=== PATIENT | male | born 1955 | race Caucasian/White ===

== ENCOUNTER → 2018-06-10 13:22 | Outpatient (CLI) | payer OTHER, SELFPAY ==
--- NOTE | 2018-06-10 | DI.ECHO.S_ITS ---
[place] +---------+ [facility] +---------+ : : [address] : : : : [address] : : : : [phone] : : : : Phone: [phone] +---------+ Echocardiogram Report + + :Name: MARILEE BOND Study Date: 06/10/2018 Height: 68 in : :[facility] Exam Location: [facility] Weight: 220 lb : : Gender: Male BSA: 2.1 m2 : :: 1955 Age: 63 yrs BP: 128/78 mmHg: :Reason For Study: Aortic Stenosis (S/P AVR) : :Ordering Physician: Florence Agosto : :Ronal Performed By: Tammy Mauricio : :Referring: FLORENCE MICHELE : + + Interpretation Summary Left ventricular systolic function is normal without focal wall motion abnormalities with the ejection fraction visually estimated to be 60-65% and grossly appears unchanged compared to the previous study. There is mild concentric left ventricular hypertrophy. The right ventricle is not well visualized but grossly appears normal in size with probable normal systolic function and grossly appears unchanged compared to the previous study. Pulmonary artery pressures cannot be estimated because of the lack of a measurable TR jet velocity but the IVC suggests a CVP of around 3 mmHg. The left atrium is mildly dilated. The anterior mitral valve leaflet is moderately calcified with mildly reduced leaflet mobility producing probable mild mitral stenosis with a mitral valve mean gradient is 4 mmHg which is unchanged compared to the previous study. There is mild mitral regurgitation that grossly appears unchanged compared to the previous study. There is a new bioprosthetic aortic valve since the previous exam. This appears to be stable without any rocking motion although there are multiple small perivalvular jets, specifically at 12 o'clock and 8 o'clock positions in the short axis. There appears to be some systolic flow through the 12 o'clock perivalvular space. In addition, there appears to be mild intravalvular regurgitation. In total, there appears to be mild to moderate aortic regurgitation There is no no evidence for any hemodynamically significant valvular aortic stenosis. The ascending aorta is mildly enlarged. Procedure: A two-dimensional transthoracic echocardiogram with color flow and Doppler was performed. The study quality was technically adequate. Comparison is made with the echocardiogram of 01/28/2018. Although the previous study is a SHAYLA, making direct comparison difficult. The patient was in normal sinus rhythm during the exam. Left Ventricle: The left ventricle is normal in size. There is mild concentric left ventricular hypertrophy. Left ventricular systolic function is normal without focal wall motion abnormalities. The ejection fraction is estimated to be 60-65%. This is grossly compared to the previous study. Diastolic function could not be accurately assessed due to confounding valvular disease. Right Ventricle: The right ventricle is not well visualized. The right ventricle grossly appears normal in size with probable normal systolic function. This is grossly compared to the previous study. Atria: The left atrium is mildly dilated. Right atrial size is normal. The interatrial septum is intact with no evidence for an atrial septal defect. Mitral Valve: The anterior mitral valve leaflet is moderately calcified with mildly reduced leaflet mobility. There is mild mitral stenosis. The mitral valve mean gradient is 4 mmHg. This is unchanged compared to the previous study. There is mild mitral regurgitation. This is grossly unchanged compared to the previous study. Aortic Valve: There is a new bioprosthetic aortic valve since the previous exam. This appears to be stable without any rocking motion although there are multiple small perivalvular jets, specifically at twelve o'clock and 8 o'clock position in the short axis. There appears to be some systolic flow through the twelve o'clock perivalvular space. In addition, there appears to be mild intra-valvular regurgitation. In total, there appears to be mild to moderate aortic regurgitation. There is no hemodynamically significant valvular aortic stenosis. Tricuspid Valve: The tricuspid valve is normal in structure and function. There is a trace or physiologic amount of tricuspid regurgitation. Pulmonary artery pressures cannot be estimated because of the lack of a measurable TR jet velocity but the IVC suggests a CVP of around 3 mmHg. Pulmonic Valve: The pulmonic valve is not well seen, but is grossly normal. There is a trace or physiologic amount of pulmonic regurgitation. Great Vessels: The ascending aorta is mildly enlarged. The IVC is of normal diameter and collapses greater than 50% with a sniff. This suggests a low right atrial pressure of 3 mm Hg. Pericardium/ Pleura There is no pericardial effusion. There is no pleural effusion. MMode/2D Measurements & Calculations LVIDd: 4.6 cm LVOT diam: 2.3 cm LVIDs: 3.1 cm asc Aorta Diam: 3.8 cm FS: 31.6 % Ao Arch Diam (Prox Trans): 2.7 cm IVSd: 1.3 cm LVPWd: 1.2 cm LV rhodes. diameter/BSA (cm/m^2): 2.1 LV sys. diameter/BSA (cm/m^2): 1.5 LA A2 area: 21.7 cm2 RA long axis: 5.1 cm LA A4 area: 23.6 cm2 RA area: 17.3 cm2 LA length (vol): 5.2 cm RA vol: 50.2 ml LA vol: 83.7 ml RA : 23.6 ml/m2 LA vol index: 39.3 ml/m2 TAPSE: 1.0 cm Doppler Measurements & Calculations Ao V2 max: 140.8 cm/sec LVOT Max Sedrick: 99.5 cm/sec Ao V2 mean: 93.0 cm/sec LV V1 max P.0 mmHg Ao max P.9 mmHg LV V1 VTI: 19.6 cm Ao mean P.9 mmHg RENAN(I,D): 3.2 cm2 Ao V2 VTI: 25.3 cm RENAN(V,D): 2.9 cm2 sev ratio: 0.78 RENAN indexed to BSA (cm^2/m^2): 1.5 MVA(VTI): 1.3 cm2 MV V2 mean: 89.1 cm/sec MV mean P.6 mmHg MV V2 VTI: 61.3 cm Reading Physician:GEOVANY
[2018-06-10 15:01] LABS: Add Manual Diff / Slide Review NO; Basophils Percent Auto 0.9 % (0-2); Eosinophils Percent Auto 1.7 % (2-4); Hematocrit 43.4 % (41-53); Hemoglobin 14.9 g/dL (13.5-17.5); Lymphocytes Percent Auto 20.5 % (25-40); Mean Corpuscular HGB Conc 34.5 % (30-36); Mean Corpuscular Volume 89.9 fL (80-100); Monocytes Percent Auto 8.9 % (3-14); Neutrophils Absolute Auto 5600 /uL (3000-5900); Platelet Count 146 X10^3/uL (150-400); Red Blood Cell Count 4.82 X10^6/uL (4.5-5.9); White Blood Cell Count 8.2 X10^3/uL (4.5-11.0)
[2018-06-10 16:42] LABS: Alanine Aminotransferase 24 IU/L (21-72); Albumin 4.5 g/dL (3.5-5.0); Albumin Globulin Ratio 1.5 (1.0-2.8); Alkaline Phosphatase 71 U/L (38-126); Aspartate Aminotransferase 41 IU/L (17-59); Bilirubin Total 1.4 mg/dL (0.2-1.3); Blood Urea Nitrogen 16 mg/dL (9-20); Calcium 9.6 mg/dL (8.4-10.2); Carbon Dioxide 32 mmol/L (22-32); Chloride 103 mmol/L (98-107); Estimated Glomerular Filt Rate > 60.0 mL/min (>60); Globulin 3.1 g/dL (1.7-4.1); Glucose 85 mg/dL (80-110); HEMOLYSIS 19 (0-50); Potassium 4.5 mmol/L (3.4-5.1); Sodium 143 mmol/L (137-145); Total Protein 7.6 g/dL (6.3-8.2)
== END ==
PROVIDERS: PCP Physician Assistant; Visit Provider Internal Medicine Cardiovascular Disease
DX: I08.0 Rheumatic disorders of both mitral and aortic valves (principal); I48.0 Paroxysmal atrial fibrillation; Z95.3 Presence of xenogenic heart valve
CPT/HCPCS: 36415; 80053; 85025; 93306

== ENCOUNTER → 2019-04-12 09:06 | Outpatient (CLI) | payer OTHER, SELFPAY ==
--- NOTE | 2019-04-12 | DI.ECHO.S_ITS ---
[place] +---------+ [facility] +---------+ : : [address] : [address] : : : : [phone] : : : : Phone: [phone] +---------+ Echocardiogram Report + + :Name: MARILEE BOND Study Date: 04/12/2019 Height: 68 in : :[facility] Weight: 217 lb : : Gender: Male BSA: 2.1 m2 : :: 1955 Age: 64 yrs BP: 132/72 mmHg: :Reason For Study: Mitral Valve- Stenosis : : Performed By: Ritika Estrella : :Referring: FLORENCE VILLEDA : + + Interpretation Summary 1) Normal left ventricular size, thickness, wall motion, and systolic function E(F 60-65%). 2) Normal right ventricular size and function grossly 3) Severe left atrial enlargement. 4) There is mild to moderate mitral stenosis (valve are 1.5cm2 by PHT method, mean gradient 6.2mmmHg). 5) Bioprosthetic aortic valve present, which is well seated and with expected gradient (mean gradient of 3.1cmmHg). Mild aortic regurigtation present. 5) The ascending aorta is mildly enlarged at 3.9cm. 6) Compared to the Echo done 06/10/2018, no significant change. Procedure: A two-dimensional transthoracic echocardiogram with color flow and Doppler was performed. The study quality was technically adequate. Comparison is made with the echocardiogram of 06-10-18. The patient was in atrial fibrillation with heart rates between 57-70 bpm during the exam. Left Ventricle: The left ventricle is normal in size, wall thickness, and systolic function without any focal wall motion abnormalities. The ejection fraction is estimated to be 60-65%. Diastolic function could not be accurately assessed due to atrial fibrillation. Right Ventricle: The right ventricle grossly appears normal in size with probable normal systolic function. Atria: The left atrium is severely dilated. Right atrial size is normal. The interatrial septum is intact with no evidence for an atrial septal defect. Mitral Valve: The mitral valve leaflets appear moderately thickened, but open well. There is mild mitral annular calcification. The mitral valve appears rheumatic. The mitral valve mean gradient is 6.2 mmHg. There is mild to moderate mitral stenosis. 1.5cm2 valve area by PHT method. There is trace mitral regurgitation. Aortic Valve: There is a bioprosthetic aortic valve. The prosthetic aortic valve is well-seated. There is mild aortic regurgitation. Tricuspid Valve: The tricuspid valve leaflets are thin and pliable. There is a trace or physiologic amount of tricuspid regurgitation. The right ventricular systolic pressure is estimated to be at least 16 mmHg based on an estimated right atrial pressure of 3 mm Hg. Pulmonic Valve: The pulmonic valve is not well seen, but is grossly normal. There is trace pulmonic regurgitation. Great Vessels: The aortic root is normal size. The ascending aorta is mildly enlarged. The aortic arch is normal in size. The IVC is of normal diameter and collapses greater than 50% with a sniff. This suggests a low right atrial pressure of 3 mm Hg. Pericardium/ Pleura There is no pericardial effusion. There is no pleural effusion. MMode/2D Measurements & Calculations LVIDd: 4.9 cm Ao root diam: 3.1 cm LVIDs: 2.6 cm Aortic Jxn: 2.8 cm FS: 47.0 % asc Aorta Diam: 3.9 cm EPSS: 1.3 cm Ao Arch Diam (Prox Trans): 2.9 cm IVSd: 1.0 cm LVPWd: 0.75 cm LV rhodes. diameter/BSA (cm/m^2): 2.3 LV sys. diameter/BSA (cm/m^2): 1.2 LA dimension: 4.3 cm RA long axis: 5.2 cm LA A2 area: 31.4 cm2 RA area: 16.4 cm2 LA A4 area: 25.0 cm2 RA vol: 44.0 ml LA length (vol): 5.9 cm RA : 20.8 ml/m2 LA vol: 113.9 ml IVC diam: 1.1 cm LA vol index: 53.9 ml/m2 RVDd major: 6.3 cm RVD1 (basal): 3.5 cm RVD2 (mid): 3.1 cm Doppler Measurements & Calculations Ao V2 max: 127.1 cm/sec MV E max sedrick: 167.3 cm/sec Ao V2 mean: 79.3 cm/sec MV A max sedrick: 182.8 cm/sec Ao max P.5 mmHg MV E/A: 0.92 Ao mean P.1 mmHg Med Peak E' Sedrick: 4.5 cm/sec Ao V2 VTI: 25.9 cm E/E' med: 37.0 Lat Peak E' Sedrick: 7.5 cm/sec E/E' lat: 22.4 E/e' average: 29.7 MV dec time: 0.49 sec TR max sedrick: 181.0 cm/sec MV V2 mean: 117.2 cm/sec TR max P.1 mmHg MV mean P.2 mmHg PA V2 max: 82.1 cm/sec MV V2 VTI: 65.6 cm PA V2 mean: 55.6 cm/sec PA mean P.4 mmHg PA Accel Time: 0.16 sec Reading Physician:12:14 PM
== END ==
PROVIDERS: Family Provider Family Medicine; PCP Family Medicine; Visit Provider Internal Medicine Cardiovascular Disease
DX: I08.0 Rheumatic disorders of both mitral and aortic valves (principal); I77.89 Other specified disorders of arteries and arterioles
CPT/HCPCS: 93306

== ENCOUNTER → 2019-06-04 13:54 | Outpatient (CLI) | payer OTHER, SELFPAY ==
[2019-06-04 14:45] LABS: Add Manual Diff / Slide Review NO; Basophils Absolute Auto 100 /uL (0-100); Basophils Percent Auto 0.6 % (0-2); Eosinophils Absolute Auto 300 /uL (0-450); Eosinophils Percent Auto 3.5 % (2-4); Hematocrit 45.2 % (41-53); Hemoglobin 15.7 g/dL (13.5-17.5); Lymphocytes Absolute Auto 1700 /uL (1100-4500); Lymphocytes Percent Auto 19.5 % (25-40); Mean Corpuscular HGB Conc 34.8 % (30-36); Monocytes Absolute Auto 800 /uL (0-900); Monocytes Percent Auto 9.1 % (3-14); Neutrophils Absolute Auto 5700 /uL (1500-7000); Neutrophils Percent Auto 67.3 % (50-75); Platelet Count 152 X10^3/uL (150-400); Red Blood Cell Count 4.91 X10^6/uL (4.5-5.9); White Blood Cell Count 8.5 X10^3/uL (4.5-11.0)
[2019-06-04 15:54] LABS: BUN Creatinine Ratio 14.4 (6-22); Blood Urea Nitrogen 13 mg/dL (9-20); Calcium 9.8 mg/dL (8.4-10.2); Carbon Dioxide 27 mmol/L (22-32); Chloride 105 mmol/L (98-107); Cholesterol 243 mg/dL (140-199); Estimated Glomerular Filt Rate > 60.0 mL/min (>60); Glucose 92 mg/dL (80-110); HDL Cholesterol 32 mg/dL (40-60); HEMOLYSIS < 15 (0-50); LDL Cholesterol Calculated 159 mg/dL (<100); Potassium 4.2 mmol/L (3.4-5.1); Sodium 140 mmol/L (137-145); Triglycerides 261 mg/dL (35-150)
== END ==
PROVIDERS: Family Provider Family Medicine; PCP Family Medicine; Visit Provider Internal Medicine Cardiovascular Disease
DX: Z86.73 Personal history of transient ischemic attack (TIA), and cerebral infarction without residual deficits (principal); Z79.01 Long term (current) use of anticoagulants; I05.0 Rheumatic mitral stenosis
CPT/HCPCS: 36415; 80048; 80061; 85025

== ENCOUNTER → 2020-08-03 14:35 | Outpatient (CLI) | payer OTHER, SELFPAY ==
--- NOTE | 2020-08-03 14:36 | DI.ECHO.S_ITS ---
[facility]---------+ [facility] +---------+ : : [address] : : : : [phone] : : : : Phone: [phone] : : [phone] +---------+ Echocardiogram Report + + :Name: MARILEE BOND Study Date: 08/03/2020 Height: 68 in : :[facility] ReadingLocation: Weight: 230 lb : : Gender: Male BSA: 2.2 m2 : :: 1955 Age: 65 yrs BP: 158/89 mmHg: :Reason For Study: MITRAL STENOSIS : :Ordering Physician: RYNE, : :FLORENCE Performed By: Kim Smith : :Referring: FLORENCE VILLEDA : + + Interpretation Summary 1) Normal left ventricular size, wall motion, and systolic function (EF 60- 65%). 2) Grossly, normal right ventricular size with low normal function. 3) Moderate left atrial enlargement. 4) There is mild to moderate mitral stenosis (valve are 1.8cm2 by PHT method, mean gradient 6-7mmmHg). 5) Bioprosthetic aortic valve present, which is well seated and with expected gradient (mean gradient of 4.4cmHg). Mild aortic regurigtation present. 5) The ascending aorta is mildly enlarged at 3.9cm. 6) Compared to the Echo done 04/12/2019, no significdant change. Procedure: A two-dimensional transthoracic echocardiogram with color flow and Doppler was performed. The study quality was technically adequate. Comparison is made with the echocardiogram of 04/12/2019. Left Ventricle: The left ventricle is normal in size. There is mild concentric left ventricular hypertrophy. The ejection fraction is estimated to be 60-65%. Diastolic function could not be accurately assessed due to contradictory data. Right Ventricle: The right ventricle is grossly normal size. Right ventricular systolic function is at the lower limits of normal. Atria: The left atrium is moderately dilated. Right atrial size is normal. There is no Doppler evidence for an interatrial shunt. Mitral Valve: The mitral valve appears rheumatic. There is mild mitral annular calcification. The mitral valve leaflets are mildly calcified. The mitral valve mean gradient is 7.6 mmHg. There is mild to moderate mitral stenosis. There is trace mitral regurgitation. Aortic Valve: There is a bioprosthetic aortic valve. The peak aortic velocity is 1.5 m/sec. The aortic valve mean gradient is 4.4 mmHg. There is mild aortic regurgitation. Tricuspid Valve: The tricuspid valve is not well visualized, but is grossly normal. There is trace tricuspid regurgitation. Pulmonary artery pressures cannot be estimated because of the lack of a measurable TR jet velocity. Pulmonic Valve: The pulmonic valve leaflets are thin and pliable; valve motion is normal. There is no pulmonic valvular regurgitation. Great Vessels: The aortic root is not well visualized but is probably normal size. The ascending aorta is mildly enlarged. The inferior vena cava was not well visualized. Pericardium/ Pleura There is no pericardial effusion. There is no pleural effusion. MMode/2D Measurements & Calculations LVIDd: 4.8 cm LVOT diam: 2.1 cm LVIDs: 3.3 cm asc Aorta Diam: 3.9 cm FS: 31.2 % Ao Arch Diam (Prox Trans): 2.7 cm EPSS: 1.2 cm IVSd: 1.2 cm LVPWd: 0.94 cm LV rhodes. diameter/BSA (cm/m^2): 2.2 LV sys. diameter/BSA (cm/m^2): 1.5 LA A2 area: 29.5 cm2 RA long axis: 5.3 cm LA A4 area: 22.3 cm2 RA area: 20.3 cm2 LA length (vol): 6.0 cm RA vol: 65.6 ml LA vol: 93.0 ml RA : 30.3 ml/m2 LA vol index: 42.9 ml/m2 RVD1 (basal): 4.0 cm TAPSE: 1.6 cm Doppler Measurements & Calculations Ao V2 max: 150.2 cm/sec LVOT Max Sedrick: 97.6 cm/sec Ao V2 mean: 97.4 cm/sec LV V1 max P.8 mmHg Ao max P.0 mmHg LV V1 VTI: 16.9 cm Ao mean P.4 mmHg RENAN(I,D): 2.3 cm2 Ao V2 VTI: 25.9 cm RENAN(V,D): 2.3 cm2 sev ratio: 0.65 RENAN indexed to BSA (cm^2/m^2): 1.1 MV E max sedrick: 159.2 cm/sec PA V2 max: 82.8 cm/sec MV A max sedrick: 177.8 cm/sec PA V2 mean: 57.7 cm/sec MV E/A: 0.90 PA mean P.5 mmHg Med Peak E' Sedrick: 4.1 cm/sec PA pr(Accel): 43.0 mmHg E/E' med: 38.8 Lat Peak E' Sedrick: 10.6 cm/sec E/E' lat: 15.1 E/e' average: 26.9 MV dec time: 0.43 sec MV P1/2t: 114.8 msec MVA(VTI): 0.97 cm2 MV V2 mean: 132.9 cm/sec MV P1/2t max sedrick: 146.7 cm/sec MV mean P.6 mmHg MVA(P1/2t): 1.9 cm2 MV V2 VTI: 61.4 cm SV(LVOT): 59.6 ml MV P1/2t-pr_phl: 141.3 msec Reading Physician:02:38 PM
== END ==
PROVIDERS: Family Provider Family Medicine; PCP Family Medicine; Referring Provider Internal Medicine Cardiovascular Disease; Visit Provider Internal Medicine Cardiovascular Disease
DX: I08.0 Rheumatic disorders of both mitral and aortic valves (principal); I77.89 Other specified disorders of arteries and arterioles; Z95.2 Presence of prosthetic heart valve
CPT/HCPCS: 93306

== ENCOUNTER → 2022-10-14 07:48 | Outpatient (CLI) | payer OTHER, SELFPAY ==
--- NOTE | 2022-10-14 | DI.ECHO.S_ITS ---
[facility]---------+ [facility] +---------+ : : [address] : [address] : : : : [id number] : : : : Phone: [phone] : [phone] +---------+ Echocardiogram Report + + :Name: MARILEE BOND Study Date: 10/14/2022 Height: 68 in : :[facility] ReadingLocation: Weight: 215 lb : : Gender: Male BSA: 2.1 m2 : :: 1955 Age: 67 yrs BP: 140/85 mmHg: :Reason For Study: AORTIC VALVE REPLACEMENT HR: 60 : :Ordering Physician: RYNE, : :FLORENCE Performed By: BETO ESCOTO : :Referring: FLORENCE VILLEDA : + + Interpretation Summary 1) Normal left ventricular size, wall motion, and systolic function (EF 60- 65%). 2) Grossly, normal right ventricular size with low normal function. 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 4) Bioprosthetic aortic valve present, which is well seated and with expected gradient (mean gradient of 5mmHg). Trace aortic regurigtation present. 5) The ascending aorta is mildly enlarged at 3.9cm. 6) Compared to the Echo done 08/03/2020, no significant change. Procedure: A two-dimensional transthoracic echocardiogram with color flow and Doppler was performed. The study quality was technically adequate. Comparison is made with the echocardiogram of 08/03/2020. The patient was in normal sinus rhythm during the exam. Left Ventricle: The left ventricle is normal in size. There is mild concentric left ventricular hypertrophy. Left ventricular systolic function is normal. The ejection fraction is estimated to be 60-65%. Diastolic function could not be accurately assessed due to confounding valvular disease. Right Ventricle: The right ventricle is grossly normal size. Right ventricular systolic function is at the lower limits of normal. Atria: The left atrium is mildly dilated. Right atrial size is normal. There is no Doppler evidence for an interatrial shunt. Mitral Valve: The mitral valve appears rheumatic. There is mild mitral annular calcification. The mitral valve leaflets are mildly calcified. There is mild to moderate mitral stenosis. The mitral valve mean gradient is 8 mmHg. There is trace mitral regurgitation. Aortic Valve: There is a bioprosthetic aortic valve. The peak aortic velocity is 1.4 m/sec. The aortic valve mean gradient is 5 mmHg. There is trace aortic regurgitation. Tricuspid Valve: The tricuspid valve is not well visualized, but is grossly normal. No tricuspid regurgitation. Pulmonary artery pressures cannot be estimated because of the lack of a measurable TR jet velocity. Pulmonic Valve: The pulmonic valve leaflets are thin and pliable; valve motion is normal. There is no pulmonic valvular regurgitation. Great Vessels: The aortic root is normal size. The ascending aorta is mildly enlarged. The IVC is of normal diameter and collapses greater than 50% with a sniff. This suggests a low right atrial pressure of 3 mm Hg. Pericardium/ Pleura There is no pericardial effusion. There is no pleural effusion. MMode/2D Measurements & Calculations LVIDd: 4.7 cm LVOT diam: 2.0 cm LVIDs: 3.2 cm Ao root diam: 3.4 cm FS: 31.9 % asc Aorta Diam: 3.9 cm IVSd: 1.1 cm Ao Arch Diam (Prox Trans): 2.5 cm LVPWd: 1.1 cm LV rhodes. diameter/BSA (cm/m^2): 2.2 LV sys. diameter/BSA (cm/m^2): 1.5 LA A2 area: 26.0 cm2 RA long axis: 4.9 cm LA A4 area: 16.5 cm2 LA length (vol): 5.8 cm LA vol: 62.7 ml LA vol index: 29.7 ml/m2 LVLs ap4: 7.4 cm LVLd ap2: 8.1 cm LVLs ap2: 7.1 cm TAPSE_phl: 1.6 cm Doppler Measurements & Calculations Ao V2 max: 135.0 cm/sec LVOT Max Sedrick: 104.0 cm/sec Ao V2 mean: 104.0 cm/sec LV V1 max P.3 mmHg Ao max P.3 mmHg LV V1 VTI: 24.0 cm Ao mean P.0 mmHg RENAN(I,D): 2.6 cm2 Ao V2 VTI: 28.8 cm RENAN(V,D): 2.4 cm2 sev ratio: 0.83 RENAN indexed to BSA (cm^2/m^2): 1.2 MV E max sedrick: 155.0 cm/sec PA V2 max: 94.0 cm/sec MV A max sedrick: 152.0 cm/sec PA V2 mean: 70.1 cm/sec MV E/A: 1.0 PA mean P.0 mmHg Med Peak E' Sedrick: 3.5 cm/sec PA pr(Accel): 42.5 mmHg E/E' med: 44.5 Lat Peak E' Sedrick: 8.9 cm/sec E/E' lat: 17.4 E/e' average: 31.0 MV dec time: 0.55 sec MV P1/2t: 137.0 msec MVA(VTI): 0.99 cm2 MV V2 mean: 132.0 cm/sec MV P1/2t max sedrick: 182.0 cm/sec MV mean P.0 mmHg MVA(P1/2t): 1.6 cm2 MV V2 VTI: 75.8 cm SV(LVOT): 75.4 ml AV VR_phl: 0.81 RENAN(VTI)/BSA_phl: 1.3 MV P1/2t-pr_phl: 163.0 msec Reading Physician:03:11 PM
[2022-10-14 09:11] LABS: Add Manual Diff / Slide Review NO; Basophils Absolute Auto 100 /uL (0-100); Basophils Percent Auto 0.9 % (0-2); Eosinophils Absolute Auto 300 /uL (0-450); Eosinophils Percent Auto 5.2 % (2-4); Hematocrit 44.2 % (41-53); Hemoglobin 14.9 g/dL (13.5-17.5); Lymphocytes Absolute Auto 1700 /uL (1100-4500); Lymphocytes Percent Auto 27.1 % (25-40); Mean Corpuscular HGB Conc 33.8 % (30-36); Mean Corpuscular Hemoglobin 30.8 PG (26-34); Mean Corpuscular Volume 91.1 fL (80-100); Monocytes Absolute Auto 700 /uL (0-900); Monocytes Percent Auto 11.3 % (3-14); Neutrophils Absolute Auto 3500 /uL (1500-7000); Neutrophils Percent Auto 55.5 % (50-75); Platelet Count 138 X10^3/uL (150-400); Red Blood Cell Count 4.85 X10^6/uL (4.5-5.9); Red Cell Distribution Width 13.4 % (11.6-14.8); White Blood Cell Count 6.3 X10^3/uL (4.5-11.0)
[2022-10-14 09:53] LABS: BUN Creatinine Ratio 18.9 (6-22); Blood Urea Nitrogen 14 mg/dL (9-20); Calcium 9.1 mg/dL (8.4-10.2); Carbon Dioxide 30 mmol/L (22-32); Chloride 101 mmol/L (98-107); Cholesterol 170 mg/dL (140-199); Estimated Glomerular Filt Rate > 60 mL/min (>60); Glucose 95 mg/dL (80-110); HDL Cholesterol 42 mg/dL (40-60); HEMOLYSIS < 15 (0-50); LDL Cholesterol Calculated 98 mg/dL (<100); Potassium 4.4 mmol/L (3.4-5.1); Sodium 138 mmol/L (137-145); Triglycerides 148 mg/dL (35-150)
== END ==
PROVIDERS: Family Provider Family Medicine; PCP Family Medicine; Referring Provider Internal Medicine Cardiovascular Disease; Visit Provider Internal Medicine Cardiovascular Disease
DX: I05.0 Rheumatic mitral stenosis (principal); I77.89 Other specified disorders of arteries and arterioles; I48.19 Other persistent atrial fibrillation; E78.5 Hyperlipidemia, unspecified; Z95.3 Presence of xenogenic heart valve; Z79.01 Long term (current) use of anticoagulants
CPT/HCPCS: 36415; 80048; 80061; 85025; 93306

== ENCOUNTER → 2023-12-10 12:36 | Outpatient (CLI) | payer OTHER, SELFPAY ==
--- NOTE | 2023-12-10 12:37 | DI.ECHO.S_ITS ---
[place] +---------+ [facility] : : [address] : [address] : : [id number] : : Phone: [phone] Echocardiogram Report + + :Name: MARILEE BOND Study Date: 12/10/2023 Height: 68 in : :[facility] ReadingLocation: Weight: 230 lb : : Gender: Male BSA: 2.2 m2 : :: 1955 Age: 68 yrs BP: 130/81 mmHg: :Reason For Study: RHEUMATIC MITRAL STENOSIS : :Ordering Physician: RYNE, : :FLORENCE Performed By: Kim Smith : :Referring: FLORENCE VILLEDA : + + Interpretation Summary 1) Normal left ventricular size, wall motion, and systolic function (EF 55- 60%). 2) Mildy enlarged right ventricle with low normal function. 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 4) Bioprosthetic aortic valve present, which is well seated and with expected gradient (mean gradient of 7mmHg). Trace aortic regurigtation present. 5) Compared to the Echo done 10/14/2022, mean inflow gradient across the mitral valve has increased from 6mmHg to 8mmHg on this study. Procedure: A two-dimensional transthoracic echocardiogram with color flow and Doppler was performed. The study quality was technically adequate. Comparison is made with the echocardiogram of 10/14/2022. The patient was in sinus bradycardia with heart rates between 57-63 bpm during the exam. Left Ventricle: The left ventricle is normal in size. Left ventricular wall thickness is mildly increased. The ejection fraction is estimated to be 55- 60%. There are no focal wall motion abnormalities. Diastolic function could not be accurately assessed due to confounding valvular disease. Right Ventricle: The right ventricle is mildly dilated. Right ventricular systolic function is at the lower limits of normal. Atria: The left atrium is moderately dilated. Right atrial size is normal. There is no Doppler evidence for an interatrial shunt. Mitral Valve: The mitral valve appears rheumatic. The mitral valve leaflets are moderately calcified. There is mild mitral annular calcification. The mitral valve mean gradient is 8 mmHg. There is moderate mitral stenosis. There is trace mitral regurgitation. Aortic Valve: There is a bioprosthetic aortic valve. There is no aortic valve stenosis. The peak aortic velocity is 1.9 m/sec. The aortic valve mean gradient is 7 mmHg. No aortic regurgitation is present. Tricuspid Valve: The tricuspid valve is normal in structure and function. There is trace tricuspid regurgitation. Pulmonary artery pressures cannot be estimated because of the lack of a measurable TR jet velocity. Pulmonic Valve: The pulmonic valve leaflets are thin and pliable; valve motion is normal. There is mild pulmonic regurgitation. Great Vessels: The aortic root is normal size. The dimensions of the ascending aorta are normal. The inferior vena cava was not visualized. Pericardium/ Pleura There is no pericardial effusion. There is no pleural effusion. MMode/2D Measurements & Calculations LVIDd: 4.7 cm LVOT diam: 2.0 cm LVIDs: 3.2 cm Ao root diam: 3.1 cm FS: 30.4 % asc Aorta Diam: 3.8 cm EPSS: 1.5 cm Ao Arch Diam (Prox Trans): 2.8 cm IVSd: 1.0 cm LVPWd: 1.2 cm LV rhodes. diameter/BSA (cm/m^2): 2.2 LV sys. diameter/BSA (cm/m^2): 1.5 LA A2 area: 23.4 cm2 RA long axis: 5.7 cm LA A4 area: 22.0 cm2 RA area: 19.9 cm2 LA length (vol): 5.5 cm RA vol: 59.3 ml LA vol: 80.0 ml RA : 27.3 ml/m2 LA vol index: 36.9 ml/m2 RVD1 (basal): 4.3 cm TAPSE: 1.8 cm Doppler Measurements & Calculations Ao V2 max: 170.8 cm/sec LVOT Max Sedrick: 107.2 cm/sec Ao V2 mean: 122.9 cm/sec LV V1 max P.6 mmHg Ao max P.7 mmHg LV V1 VTI: 24.6 cm Ao mean P.6 mmHg RENAN(I,D): 2.1 cm2 Ao V2 VTI: 35.1 cm RENAN(V,D): 1.9 cm2 sev ratio: 0.70 RENAN indexed to BSA (cm^2/m^2): 0.97 MV E max sedrick: 185.6 cm/sec PA V2 max: 111.4 cm/sec MV A max sedrick: 157.9 cm/sec PA V2 mean: 73.4 cm/sec MV E/A: 1.2 PA mean P.5 mmHg Med Peak E' Sedrick: 3.7 cm/sec PA pr(Accel): 22.5 mmHg E/E' med: 49.9 Lat Peak E' Sedrick: 6.6 cm/sec E/E' lat: 28.3 E/e' average: 39.1 MV dec time: 0.57 sec MVA(VTI): 0.88 cm2 MV V2 mean: 133.6 cm/sec SV(LVOT): 73.8 ml MV mean P.0 mmHg MV V2 VTI: 83.6 cm Reading Physician:09:43 AM
[2023-12-10 14:08] LABS: Add Manual Diff / Slide Review NO; Basophils Absolute Auto 100 /uL (0-100); Basophils Percent Auto 0.8 % (0-2); Eosinophils Absolute Auto 200 /uL (0-450); Eosinophils Percent Auto 2.6 % (2-4); Hematocrit 42.1 % (41-53); Hemoglobin 14.3 g/dL (13.5-17.5); Lymphocytes Absolute Auto 1900 /uL (1100-4500); Lymphocytes Percent Auto 26.8 % (25-40); Mean Corpuscular HGB Conc 34.1 % (30-36); Mean Corpuscular Hemoglobin 31.9 PG (26-34); Mean Corpuscular Volume 93.5 fL (80-100); Monocytes Absolute Auto 700 /uL (0-900); Monocytes Percent Auto 10.3 % (3-14); Neutrophils Absolute Auto 4200 /uL (1500-7000); Neutrophils Percent Auto 59.5 % (50-75); Platelet Count 114 X10^3/uL (150-400); Red Cell Distribution Width 13.7 % (11.6-14.8); White Blood Cell Count 7.1 X10^3/uL (4.5-11.0)
[2023-12-10 14:37] LABS: BUN Creatinine Ratio 17.3 (6-22); Blood Urea Nitrogen 13 mg/dL (9-20); Calcium 8.7 mg/dL (8.4-10.2); Carbon Dioxide 29 mmol/L (22-32); Chloride 108 mmol/L (98-107); Cholesterol 151 mg/dL (140-199); Estimated Glomerular Filt Rate > 60 mL/min (>60); Glucose 93 mg/dL (80-110); HEMOLYSIS 31 (0-50); Potassium 4.3 mmol/L (3.4-5.1); Sodium 141 mmol/L (137-145); Triglycerides 157 mg/dL (35-150)
[2023-12-10 14:53] LABS: HDL Cholesterol 43 mg/dL (40-60); LDL Cholesterol Calculated 77 mg/dL (<100)
== END ==
PROVIDERS: Family Provider Family Medicine; PCP Family Medicine; Referring Provider Internal Medicine Cardiovascular Disease; Visit Provider Internal Medicine Cardiovascular Disease
DX: I05.0 Rheumatic mitral stenosis (principal); Z95.3 Presence of xenogenic heart valve; E78.5 Hyperlipidemia, unspecified; I48.19 Other persistent atrial fibrillation
CPT/HCPCS: 36415; 80048; 80061; 85025; 93306